=== PATIENT | male | born 1950 | race Caucasian/White ===

== ENCOUNTER 2023-08-20 06:51 | Day surgery (SDC) | payer MEDICARE, BC ==
[~2023-08-20 06:51] MED LIST: Sodium Chloride 0.9% 10 ML Syringe FLUSH PRN
[2023-08-20] MEDS: Lactated Ringers 1,000 ML IV SCH (07:28)
[2023-08-20] MEDS ORDERED: fentaNYL 100 MCG/2 ML SDV ONE (08:12)
[2023-08-20] MEDS ORDERED: Propofol 200 MG/20 ML SDV ONE (08:12)
[2023-08-20] MEDS ORDERED: Midazolam 1 MG/ML 2 ML SDV ONE (08:12)
[2023-08-20] MEDS ORDERED: Lactated Ringers 1,000 ML IV SCH (08:30)
== END 2023-08-20 09:36 | disposition home or self-care (01) ==
LOC: VM.SDS 06:51
PROVIDERS: ATTEND Family Medicine
DX: Z12.11 Encounter for screening for malignant neoplasm of colon (principal); K57.30 Diverticulosis of large intestine without perforation or abscess without bleeding; I10 Essential (primary) hypertension; E11.9 Type 2 diabetes mellitus without complications; E78.00 Pure hypercholesterolemia, unspecified; E66.9 Obesity, unspecified; Z68.38 Body mass index [BMI] 38.0-38.9, adult; Z79.82 Long term (current) use of aspirin; Z79.84 Long term (current) use of oral hypoglycemic drugs; Z79.899 Other long term (current) drug therapy
CPT/HCPCS: 82947; G0121; J2250; J2704; J3010; J7120